=== PATIENT | female | born 1990 | race Caucasian/White ===

== ENCOUNTER 2019-08-05 13:57 | Outpatient (CLI) | payer OTHER | END 2019-08-05 15:00 | disposition home or self-care (01) | LOC: SONOGRAMA 13:57 → MAMO-SONO 14:15 → SONOGRAMA 15:00 | DX: D72.829 Elevated white blood cell count, unspecified (principal); E04.8 Other specified nontoxic goiter ==

== ENCOUNTER 2019-08-12 13:45 | Outpatient (CLI) | payer OTHER | END 2019-08-12 13:48 | disposition home or self-care (01) | LOC: SONOGRAMA 13:45 → MAMO-SONO 14:45 | DX: R10.2 Pelvic and perineal pain (principal) ==